=== PATIENT | male | born 2000 | race Caucasian/White ===

== ENCOUNTER 2020-10-14 14:13 | Emergency (ER) | payer OTHER ==
[2020-10-14] MEDS ORDERED: NORCO 5-325 TA1 EACH PO (16:01)
[2020-10-14] MEDS ORDERED: KEFLEX250 MG PO (16:01)
== END 2020-10-14 16:15 | disposition home or self-care (01) ==
LOC: FER 14:13
DX: K04.7 Periapical abscess without sinus (principal); K02.9 Dental caries, unspecified; F17.210 Nicotine dependence, cigarettes, uncomplicated; Z88.5 Allergy status to narcotic agent
CPT/HCPCS: 99282; J1885; Q0163